=== PATIENT | male | born 1995 ===

== ENCOUNTER 2021-02-22 23:18 | Emergency (ER) | payer OTHER ==
[~2021-02-22] VITALS: Ht 182.9 cm; Wt 84.8 kg
[2021-02-23] MEDS ORDERED: NORFLEX100MG PO (09:09)
[2021-02-23] MEDS ORDERED: KETO10TA2 PO (09:09)
== END 2021-02-23 09:21 | disposition home or self-care (01) ==
LOC: ER 23:18
DX: R10.2 Pelvic and perineal pain (principal); Z03.818 Encounter for observation for suspected exposure to other biological agents ruled out

== ENCOUNTER 2021-03-08 16:08 | Emergency (ER) | payer OTHER ==
[~2021-03-08] VITALS: Ht 182.9 cm; Wt 86.2 kg
[~2021-03-08 16:08] MED LIST: KETO10TA2 PO; NORFLEX100MG PO
[2021-03-09] MEDS ORDERED: LEVSIN0.125 MG PO (01:36)
[2021-03-09] MEDS ORDERED: NAPROXEN375 MG PO (01:36)
[2021-03-09] MEDS ORDERED: ORPHENADRINE C100 MG PO (01:42)
== END 2021-03-09 02:49 | disposition home or self-care (01) ==
LOC: ER 16:08 → EDBD 03-09 00:51 → ER 03-09 00:51
DX: R10.31 Right lower quadrant pain (principal); R10.2 Pelvic and perineal pain

== ENCOUNTER → 2023-08-07 | Emergency (ER) | payer OTHER ==
[~2023-08-07] VITALS: Ht 180.3 cm; Wt 67.1 kg
[~2023-08-07] MED LIST changes: +LEVSIN0.125 MG PO; +LIDOCAINE HCL 100 MG/10ML VIAL PERCUT ONE; +NAPROXEN375 MG PO; +ORPHENADRINE C100 MG PO
[2023-08-07 09:39] LABS: HEMATOCRIT 40.3 % (39.0-48.0); HEMOGLOBIN 13.9 g/dL (13-16.00); MEAN CORPUSCULAR HGB CONC 34.4 g/dl (32.0-36.0); PLATELET COUNT 204 K/uL (150-450); RED BLOOD COUNT 4.48 M/uL (4.00-6.00); RED CELL DISTRIBUTION WIDTH 15.4 % (11.5-14.5)
[2023-08-07 09:54] LABS: ALBUMIN 4.7 gm/dL (3.4-5.0); BILIRUBIN TOTAL 0.72 mg/dL (0.3-1.2); BILIRUBIN,CONJUGATED 0.19 mg/dL (0.0-0.2); BILIRUBIN,UNCONJUGATED 0.53 mg/dL (0.0-0.6); CALCIUM 9.1 mg/dL (8.5-10.1); CREATININE SERUM 0.86 mg/dL (0.70-1.30); GFR 106.67; GLOBULINA 3.1 G/DL (2.4-3.5); POTASSIUM 4.17 mEq/L (3.5-5.1); TOTAL PROTEIN 7.8 gm/dL (6.4-8.2)
[2023-08-07 10:26] LABS: INR 1.09; PROTHROMBIN TIME 11.4 SECONDS (9.0-11.5)
[2023-08-07 10:27] LABS: PARTIAL THROMBOPLASTIN TIME 28.2 SECONDS (22.0-34.0)
== END | disposition home or self-care (01) ==
LOC: ER 07:01
PROVIDERS: Emergency Medicine
DX: S01.111A Laceration without foreign body of right eyelid and periocular area, initial encounter (principal); S01.411A Laceration without foreign body of right cheek and temporomandibular area, initial encounter; W18.30XA Fall on same level, unspecified, initial encounter; Y92.89 Other specified places as the place of occurrence of the external cause; Y99.9 Unspecified external cause status